=== PATIENT | female | born 1950 | race American Indian/Alaskan Native ===

== ENCOUNTER 2017-01-24 10:19 | Inpatient (IN) | payer MEDICARE, OTHER ==
[2017-01-24] MEDS ORDERED: Albuterol-Ipratrop 3 mg / 0.5 (3 ml) UD INH STA ×4 (10:58→12:30)
[2017-01-24] MEDS ORDERED: MethylPREDNISolone 40 mg Vial IVP STA (10:58)
[2017-01-24] MEDS ORDERED: Albuterol-Ipratrop 3 mg / 0.5 (3 ml) UD ONE ×2 (11:08→12:50)
[2017-01-24 11:22] LABS: BASO % 1.1 % (0.0-2.0); EOS # 0.1 K/uL (0.0-0.7); EOS % 3.6 % (0.0-4.0); HEMATOCRIT 34.6 % (34.0-47.0); LYMPH # 0.6 K/uL (1.0-4.3); LYMPH % 15.3 % (20.0-40.0); MEAN CELL VOLUME 89.2 fL (81.0-99.0); MEAN CORPUSCULAR HEMOGLOBIN 29.6 pg (27.0-31.0); MEAN CORPUSCULAR HGB CONC 33.1 g/dL (33.0-37.0); MEAN PLATELET VOLUME 9.4 fL (7.2-11.7); MONO # 0.7 K/uL (0.0-0.8); MONO % 17.5 % (0.0-10.0); NRBC % 0.1 % (0.0-2.0); RED CELL DISTRIBUTION WIDTH 12.4 % (11.5-14.5)
--- NOTE | 2017-01-24 11:23 | C.PDOC ---
History Of Present Illness 66-year-old female, PMHx includes Anxiety, Arthritis, COPD, Asthma, Diabetes and Hypertension, presents to the emergency department with complaints of cough , congestion, subjective fever and shortness of breath for the past five days. Pt notes associated chest tightness and sore throat. No other complaints at this time. Time Seen by Provider: 01/24/17 10:52 Chief Complaint (Nursing): Cough, Cold, Congestion History Per: Patient History/Exam Limitations: no limitations Onset/Duration Of Symptoms: Days Current Symptoms Are (Timing): Still Present Past Medical History Reviewed: Historical Data, Nursing Documentation, Vital Signs Vital Signs: Last Vital Signs Temp 98.4 F 01/24/17 14:23 Pulse 98 H 01/24/17 14:23 Resp 18 01/24/17 14:23 BP 118/73 01/24/17 14:23 Pulse Ox 98 01/24/17 14:23 - Medical History PMH: Anxiety, Arthritis (of Rt knee and spine), Asthma, Back Problems, Bronchitis, COPD (Asthma; bronchitis), Diabetes, HTN, Pneumonia - [facility] Procedures INSPECTION OF LOWER INTESTINAL TRACT, ENDO (01/07/16) INSPECTION OF UPPER INTESTINAL TRACT, ENDO (01/07/16) Family History: States: Diabetes - Social History Hx Tobacco Use: No Hx Alcohol Use: No Hx Substance Use: No - Immunization History Hx Tetanus Toxoid Vaccination: No Hx Influenza Vaccination: No Hx Pneumococcal Vaccination: No Review Of Systems Except As Marked, All Systems Reviewed And Found Negative. Constitutional: Positive for: Fever. Negative for: Chills, Malaise ENT: Positive for: Throat Pain Cardiovascular: Negative for: Chest Pain Respiratory: Positive for: Cough, Shortness of Breath Gastrointestinal: Negative for: Nausea, Vomiting Musculoskeletal: Negative for: Neck Pain, Back Pain Skin: Negative for: Rash Neurological: Negative for: Weakness, Numbness, Headache, Dizziness Physical Exam - Physical Exam Appears: Non-toxic, No Acute Distress Skin: Warm, Dry, No Rash Head: Atraumatic, Normacephalic Eye(s): bilateral: Normal Inspection, PERRL Nose: Normal Oral Mucosa: Moist Lips: Normal Appearing Neck: Normal ROM Chest: Symmetrical Cardiovascular: Rhythm Regular Respiratory: Decreased Breath Sounds (DIMINISHED B/L), Wheezing (B/L EXPIRATORY) Extremity: Normal ROM Neurological/Psych: Oriented x3, Normal Speech ED Course And Treatment - Laboratory Results Result Diagrams: 01/24/17 11:18 01/24/17 11:18 O2 Sat by Pulse Oximetry: 100 Medical Decision Making Medical Decision Making: nsr [address] t wave changes Disposition - Disposition Disposition: HOSPITALIZED Disposition Time: 12:31 Condition: FAIR - Clinical Impression Clinical Impression: COPD (chronic obstructive pulmonary disease) - Scribe Statement The provider has reviewed the documentation as recorded by the Scribnahid Gifford All medical record entries made by the Scribe were at my direction and personally dictated by me. I have reviewed the chart and agree that the record accurately reflects my personal performance of the history, physical exam, medical decision making, and the department course for this patient. I have also personally directed, reviewed, and agree with the discharge instructions and disposition. Decision To Admit - Pt Status Changed To: Hospital Disposition Of: Inpatient - Admit Certification Admit to Inpatient:: After my assessment, the patient will require hospitalization for at least two midnights. This is because of the severity of symptoms shown, intensity of services needed, and/or the medical risk in this patient being treated as an outpatient. - InPatient: Physician Admission Certification: I certify that this patient requires 2 or more midnights of care for the following reason:: pt with copd, persistent wheezing, needs iv steriods - . Bed Request Type: Telemetry Admitting Physician: Jamari Marroquin Patient Diagnosis: COPD (chronic obstructive pulmonary disease)
[2017-01-24 11:34] LABS: CHLORIDE 102 mmol/L (98-107); SODIUM 141 mmol/L (132-148)
[2017-01-24 11:35] LABS: POTASSIUM 4.4 mmol/L (3.6-5.2)
[2017-01-24 11:37] LABS: ALB/GLOB RATIO 1.1 (1.0-2.1); ALKALINE PHOSPHATASE 85 U/L (38-126); ALT/SGPT 34 U/L (9-52); AST/SGOT 31 U/L (14-36); BILIRUBIN,TOTAL 0.6 mg/dL (0.2-1.3); BLOOD UREA NITROGEN 16 mg/dL (7-17); CARBON DIOXIDE 28 mmol/L (22-30); GFR AFRICAN-AMERICAN > 60; GLUCOSE,RANDOM 144 mg/dL (65-105); TOTAL PROTEIN 7.7 g/dL (6.3-8.3)
[2017-01-24 11:38] LABS: CALCIUM 9.4 mg/dl (8.6-10.4)
--- NOTE | 2017-01-24 13:50 | CP.PCM.HP ---
<Prabhjot Guzman - Last Filed: 01/24/17 13:47> History of Present Illness - History of Present Illness History of Present Illness: This is a 66 yo F with PMH of DM, COPD/asthma and HTN that presented to the ED with a chief complaint of sob. She states that her symptoms started about a week ago. She has been using her nebulizer treatments at home but they have not brought her relief. She has an associated dry cough for the same time period. She reports subjective fevers as well. Pt has never been intubated in the past but has been seen multiple times in the ED for similar complaints. Denies chest pain, palpitations, nausea, vomiting, GI or symptoms. PMD: [place] PMH: as per HPI PSH: denies Home meds: Per [email or web address] but not verified by pt, she is unable to remember her medications Allergies: NKA FH: diabetes and htn SH: Smoked tobacco for a year as a teen, denies Etoh or drugs Present on Admission - Present on Admission Any Indicators Present on Admission: No Review of Systems - Constitutional Constitutional: Chills, Fever - EENT Eyes: absent: Blurred Vision, Pain Nose/Mouth/Throat: absent: Nasal Congestion - Cardiovascular Cardiovascular: absent: Chest Pain, Palpitations - Respiratory Respiratory: Cough, Dyspnea - Gastrointestinal Gastrointestinal: absent: Abdominal Pain, Diarrhea, Nausea, Vomiting - Genitourinary Genitourinary: absent: Urinary Frequency, Urinary Urgency - Musculoskeletal Musculoskeletal: absent: Muscle Weakness, Stiffness Additional comments: right knee pain from a fall about a week ago - Integumentary Integumentary: absent: Pruritus, Rash - Neurological Neurological: absent: Numbness, Headaches, Tingling Past Patient History - Infectious Disease Hx of Infectious Diseases: None - Tetanus Immunizations Tetanus Immunization: Unknown - Past Medical History & Family History Past Medical History?: Yes - Past Social History Smoking Status: Never Smoked - CARDIAC Hx Hypertension: Yes - PULMONARY Hx Asthma: Yes Hx Bronchitis: Yes Hx Chronic Obstructive Pulmonary Disease (COPD): Yes (Asthma; bronchitis) Hx Pneumonia: Yes - NEUROLOGICAL Hx Neurological Disorder: Yes HX Cerebrovascular Accident: Yes - HEENT Hx HEENT Problems: No - ENDOCRINE/METABOLIC Hx Diabetes Mellitus Type 2: Yes - HEMATOLOGICAL/ONCOLOGICAL Hx Blood Disorders: No - INTEGUMENTARY Hx Dermatological Problems: No - MUSCULOSKELETAL/RHEUMATOLOGICAL Hx Arthritis: Yes (of Rt knee and spine) - GASTROINTESTINAL Hx Gastrointestinal Disorders: No - GENITOURINARY/GYNECOLOGICAL Hx Genitourinary Disorders: No - PSYCHIATRIC Hx Anxiety: Yes Hx Substance Use: No - SURGICAL HISTORY Hx Surgeries: No - ANESTHESIA Hx Anesthesia: No Meds Allergies/Adverse Reactions: Allergies Allergy/AdvReac Type Severity Reaction Status Date / Time No Known Allergies Allergy Verified 01/24/17 10:32 Physical Exam - Constitutional Appears: Well, Non-toxic, No Acute Distress - Head Exam Head Exam: ATRAUMATIC, NORMOCEPHALIC - Eye Exam Eye Exam: Normal appearance Pupil Exam: PERRL - ENT Exam ENT Exam: Mucous Membranes Moist - Respiratory Exam Respiratory Exam: Decreased Breath Sounds, Clear to Auscultation Bilateral, NORMAL BREATHING PATTERN. absent: Wheezes - Cardiovascular Exam Cardiovascular Exam: +S1, +S2 - GI/Abdominal Exam GI & Abdominal Exam: Normal Bowel Sounds, Soft - Neurological Exam Neurological exam: Alert, Oriented x3 - Skin Skin Exam: Dry, Warm Results - Vital Signs Recent Vital Signs: Last Vital Signs Temp 98.8 F 01/24/17 10:36 Pulse 82 01/24/17 10:36 Resp 22 01/24/17 10:36 BP 152/76 H 01/24/17 10:36 Pulse Ox 100 01/24/17 12:32 - Labs Result Diagrams: 01/24/17 11:18 01/24/17 11:18 Assessment & Plan - Assessment and Plan (Free Text) Assessment: Shortness of breath - Likely COPD exacerbation - CXR - no active disease, no cardiomegaly, no infiltrates seen - pending official read - EKG - NSR - No wheeze on exam, decreased breath sounds - Received Duonebs and solumedrol 125mg in ED - Continue Solumedrol 40mg Q8H - Pulmicort 0.5 Q12H - Duonebs PRN - AM labs Left knee pain - s/p fall last week - Has been able to bear weight - X-ray - f/u - Naproxen 250 BID PRN Diabetes - Continue home Metformin - Accuchecks - COOKIE HTN - Continue home amlodipine PPX - Pepcid - Lovenox, SCDs <Jamari Marroquin H - Last Filed: 01/24/17 14:46> Results - Vital Signs Recent Vital Signs: Last Vital Signs Temp 98.4 F 01/24/17 14:23 Pulse 98 H 01/24/17 14:23 Resp 18 01/24/17 14:23 BP 118/73 01/24/17 14:23 Pulse Ox 100 01/24/17 14:44 - Labs Result Diagrams: 01/24/17 11:18 01/24/17 11:18 Attending/Attestation - Attestation I have personally seen and examined this patient.: Yes I have fully participated in the care of the patient.: Yes I have reviewed all pertinent clinical information: Yes Notes (Text): Medical Attending: Patient was seen and examined by me. Agree with the above note by the resident. The patient was reporting breathing was better by the time we saw patient in the ER. Will give additional IV solumedrol 40 Q8hrs, also will need Dounebulizers as well as inhaled pulmicort thank you Jamari Marroquin
[2017-01-24] MEDS: MethylPREDNISolone 40 mg Vial IVP SCH ×2 (14:32→22:33)
[2017-01-24] MEDS ORDERED: Naproxen 275 mg Tab PO ONE (14:36)
[2017-01-24] MEDS ORDERED: Naproxen 275 mg Tab PO STA ×2 (14:39→14:42)
--- NOTE | 2017-01-24 15:09 | RAD ---
PROCEDURE: Left Knee Radiographs. HISTORY: Pain. COMPARISON: None. FINDINGS: BONES: Normal. No fracture. JOINTS: Tricompartmental osteoarthritis most severe in the medial joint compartment. No articular erosion. JOINT EFFUSION: None. OTHER FINDINGS: None. IMPRESSION: No acute fracture. Tricompartmental osteoarthritis peer
--- NOTE | 2017-01-24 16:36 | RAD ---
PROCEDURE: CHEST RADIOGRAPH, 1 VIEW HISTORY: chest pain COMPARISON: 08/19/2016 FINDINGS: LUNGS: Clear. PLEURA: No pneumothorax or pleural fluid seen. CARDIOVASCULAR: Normal. OSSEOUS STRUCTURES: No significant abnormalities. VISUALIZED UPPER ABDOMEN: Normal. OTHER FINDINGS: None. IMPRESSION: No active disease.
[2017-01-24] MEDS: (Novolin R) Insulin Human Regular 100 units/ml vial SC SCH ×2 (17:26→22:28)
[2017-01-24] MEDS ORDERED: Naproxen 275 mg Tab PO SCH (18:00)
[2017-01-24] MEDS: Naproxen 275 mg Tab PO PRN (22:32)
[2017-01-25 07:30] LABS: CHLORIDE 100 mmol/L (98-107)
[2017-01-25 07:31] LABS: POTASSIUM 4.4 mmol/L (3.6-5.2); SODIUM 139 mmol/L (132-148)
[2017-01-25 07:33] LABS: ALB/GLOB RATIO 1.3 (1.0-2.1); AST/SGOT 33 U/L (14-36); BILIRUBIN,TOTAL 0.4 mg/dL (0.2-1.3); BLOOD UREA NITROGEN 23 mg/dL (7-17); CARBON DIOXIDE 24 mmol/L (22-30); GFR AFRICAN-AMERICAN > 60; TOTAL PROTEIN 7.5 g/dL (6.3-8.3)
[2017-01-25 07:34] LABS: ALKALINE PHOSPHATASE 93 U/L (38-126); ALT/SGPT 26 U/L (9-52); CALCIUM 9.9 mg/dl (8.6-10.4); GLUCOSE,RANDOM 309 mg/dL (65-105)
[2017-01-25 07:40] LABS: BASO % 0.1 % (0.0-2.0); HEMATOCRIT 35.4 % (34.0-47.0); LYMPH # 0.8 K/uL (1.0-4.3); LYMPH % 15.2 % (20.0-40.0); MEAN CELL VOLUME 89.3 fL (81.0-99.0); MEAN CORPUSCULAR HEMOGLOBIN 29.5 pg (27.0-31.0); MEAN PLATELET VOLUME 10.1 fL (7.2-11.7); MONO # 0.2 K/uL (0.0-0.8); MONO % 4.9 % (0.0-10.0); NRBC % 0.1 % (0.0-2.0); RED CELL DISTRIBUTION WIDTH 12.7 % (11.5-14.5)
[2017-01-25] MEDS: Budesonide 0.5 mg/2 ml Inhal Susp UD INH SCH ×2 (08:20→21:50)
[2017-01-25] MEDS: (Novolin R) Insulin Human Regular 100 units/ml vial SC SCH ×4 (08:21→21:37)
[2017-01-25] MEDS: Enoxaparin 40 mg Syringe SC SCH (09:58)
[2017-01-25] MEDS ORDERED: Pneumococcal 23-Valent Vaccine IM ONE (10:00)
[2017-01-25] MEDS: Naproxen 275 mg Tab PO PRN ×2 (10:42→17:59)
[2017-01-25] MEDS: (Lantus) Insulin Glargine, Recombinant SC SCH (12:34)
[2017-01-25] MEDS: MethylPREDNISolone 40 mg Vial IVP SCH ×2 (13:39→21:38)
[2017-01-25 16:10] VITALS: RESP 20
--- NOTE | 2017-01-25 16:17 | CARD ---
APPROVED REPORT EKG Measurement Heart [id number] <Conclusion> Normal sinus rhythm non specific st t changes. Abnormal ECG
--- NOTE | 2017-01-25 20:51 | CP.PCM.PN ---
<Jamari Hernandez - Last Filed: 01/25/17 21:48> Subjective - Date & Time of Evaluation Date of Evaluation: 01/25/17 Time of Evaluation: 07:15 - Subjective Subjective: PGY1 Medicine Note Patient seen and examined at bedside. No overnight events per nursing. Patient has no acute complaints. Reports NC helps, otherwise feels SOB without it. Her left lower extremity pain persists with palpation s/p fall last week. Tolerating diet. Denies f/c, headache, hest pain, palpitations, nausea, vomiting , GI or symptoms, or any other acute complaints. Objective - Vital Signs/Intake and Output Vital Signs (last 24 hours): Temp Pulse Resp BP Pulse Ox 97.8 F 80 20 168/72 H 98 01/25/17 16:07 01/25/17 16:51 01/25/17 16:07 01/25/17 17:00 01/25/17 16:07 - Medications Medications: Current Medications Albuterol/Ipratropium (Duoneb 3 Mg/0.5 Mg (3 Ml) Ud) 3 ml INH RQ4 PRN PRN Reason: Shortness of Breath Amlodipine Besylate (Norvasc) 5 mg PO DAILY [facility] Last Admin: 01/25/17 09:58 Dose: 5 mg Budesonide (Pulmicort Respules) 0.5 mg INH RQ12 [facility] Last Admin: 01/25/17 08:20 Dose: Not Given Enoxaparin Sodium (Lovenox) 40 mg SC DAILY [facility] Last Admin: 01/25/17 09:58 Dose: 40 mg Famotidine (Pepcid) 20 mg PO BID [facility] Last Admin: 01/25/17 17:56 Dose: 20 mg Insulin Glargine (Lantus) 10 unit SC DAILY [facility] Last Admin: 01/25/17 12:34 Dose: 10 units Insulin Human Regular (Novolin R) 0 unit SC ACHS [facility] PRN Reason: Protocol Last Admin: 01/25/17 17:56 Dose: 1 unit Metformin HCl (Glucophage) 1,000 mg PO BID [facility] Last Admin: 01/25/17 17:56 Dose: 1,000 mg Methylprednisolone (Solu-Medrol) 40 mg IVP Q8H [facility] Last Admin: 01/25/17 13:39 Dose: 40 mg Naproxen (Anaprox) 275 mg PO BID PRN PRN Reason: Pain, moderate (4-7) Last Admin: 01/25/17 17:59 Dose: 275 mg - Labs Labs: 01/25/17 07:01 01/25/17 07:01 PT 10.7 SECONDS (9.7-12.2) 01/24/17 11:18 INR 1.0 01/24/17 11:18 APTT 35 SECONDS (21-34) H 01/24/17 11:18 - Additional Findings Additional findings: - Constitutional Appears: Well, Non-toxic, No Acute Distress - Head Exam Head Exam: ATRAUMATIC, NORMOCEPHALIC - Eye Exam Eye Exam: Normal appearance Pupil Exam: PERRL - ENT Exam ENT Exam: Mucous Membranes Moist - Respiratory Exam Respiratory Exam: Decreased Breath Sounds, Clear to Auscultation Bilateral, NORMAL BREATHING PATTERN. absent: Wheezes - Cardiovascular Exam Cardiovascular Exam: +S1, +S2 - GI/Abdominal Exam GI & Abdominal Exam: Normal Bowel Sounds, Soft - Extremities Exam Extremities exam: Positive for: Tenderness (Left LE), pedal pulses present. - Neurological Exam Neurological exam: Alert, Oriented x3 - Skin Skin Exam: Dry, Warm -tenderness to palpat Assessment and Plan - Assessment and Plan (Free Text) Assessment: Shortness of breath - Likely COPD exacerbation - CXR - no active disease, no cardiomegaly, no infiltrates seen - pending official read - EKG - NSR - No wheeze on exam, decreased breath sounds - Received Duonebs and solumedrol 125mg in ED - Continue Solumedrol 40mg Q8H - Pulmicort 0.5 Q12H - Duonebs PRN - AM labs Left knee pain 01/25: X-ray - no fracture; +tricompartment osteoarthritis. see full report. - s/p fall last week - Has been able to bear weight - Naproxen 250 BID PRN Diabetes 01/25: A1C 15; Lantus 10u daily - Continue home Metformin - Accuchecks - COOKIE HTN -BP WNL - Continue home amlodipine PPX - Pepcid - Lovenox, SCDs - PT eval/treat <Efren Ramos M - Last Filed: 01/26/17 15:28> Objective - Vital Signs/Intake and Output Vital Signs (last 24 hours): Temp Pulse Resp BP Pulse Ox 97.8 F 99 H 20 170/80 H 96 01/26/17 07:39 01/26/17 09:05 01/26/17 07:39 01/26/17 07:39 01/26/17 07:39 Intake and Output: 01/26/17 01/26/17 06:59 18:59 Intake Total 240 Balance 240 - Medications Medications: Current Medications Albuterol Sulfate (Albuterol 0.042% Inhal Olinda (1.25mg/3ml) Ud) 1.25 mg INH RQ6 [facility] Last Admin: 01/26/17 14:58 Dose: Not Given Amlodipine Besylate (Norvasc) 5 mg PO DAILY [facility] Last Admin: 01/26/17 09:51 Dose: 5 mg Budesonide (Pulmicort Respules) 0.5 mg INH RQ12 [facility] Last Admin: 01/26/17 07:56 Dose: 0.5 mg Enoxaparin Sodium (Lovenox) 40 mg SC DAILY [facility] Last Admin: 01/26/17 09:53 Dose: 40 mg Famotidine (Pepcid) 20 mg PO BID [facility] Last Admin: 01/26/17 09:51 Dose: 20 mg Insulin Glargine (Lantus) 10 unit SC DAILY [facility] Last Admin: 01/26/17 09:53 Dose: 10 units Insulin Human Regular (Novolin R) 0 unit SC ACHS [facility] PRN Reason: Protocol Last Admin: 01/26/17 12:59 Dose: 5 unit Metformin HCl (Glucophage) 1,000 mg PO BID [facility] Last Admin: 01/26/17 09:51 Dose: 1,000 mg Methylprednisolone (Solu-Medrol) 40 mg IVP Q8H [facility] Last Admin: 01/26/17 14:48 Dose: 40 mg Naproxen (Anaprox) 275 mg PO BID PRN PRN Reason: Pain, moderate (4-7) Last Admin: 01/26/17 05:43 Dose: 275 mg - Labs Labs: 01/26/17 07:11 01/26/17 07:11 PT 10.7 SECONDS (9.7-12.2) 01/24/17 11:18 INR 1.0 01/24/17 11:18 APTT 35 SECONDS (21-34) H 01/24/17 11:18 Attending/Attestation - Attestation I have personally seen and examined this patient.: Yes I have fully participated in the care of the patient.: Yes I have reviewed all pertinent clinical information, including history, physical exam and plan: Yes Notes (Text): 01/26/17 15:27 Patient was seen and examined at bedside with the resident Patient still has shortness of breath We will continue treatment with steroids and nebulizer. We will titrate patient's medication for diabetes for optimal control Discussed the plan of care with the resident and agree with the above assessment and plan by the resident
[2017-01-26] MEDS: Albuterol-Ipratrop 3 mg / 0.5 (3 ml) UD INH PRN ×2 (03:50→11:57)
[2017-01-26] MEDS: MethylPREDNISolone 40 mg Vial IVP SCH ×3 (05:32→21:33)
[2017-01-26] MEDS: Naproxen 275 mg Tab PO PRN ×2 (05:43→16:30)
[2017-01-26 07:30] LABS: CHLORIDE 98 mmol/L (98-107); POTASSIUM 4.2 mmol/L (3.6-5.2); SODIUM 139 mmol/L (132-148)
[2017-01-26 07:32] LABS: AST/SGOT 22 U/L (14-36); BILIRUBIN,TOTAL 0.2 mg/dL (0.2-1.3); CARBON DIOXIDE 25 mmol/L (22-30); GFR AFRICAN-AMERICAN > 60
[2017-01-26 07:33] LABS: ALB/GLOB RATIO 1.2 (1.0-2.1); ALKALINE PHOSPHATASE 83 U/L (38-126); ALT/SGPT 21 U/L (9-52); BLOOD UREA NITROGEN 25 mg/dL (7-17); GLUCOSE,RANDOM 300 mg/dL (65-105); TOTAL PROTEIN 6.8 g/dL (6.3-8.3)
[2017-01-26 07:34] LABS: CALCIUM 9.2 mg/dl (8.6-10.4)
[2017-01-26 07:41] LABS: BASO % 0.2 % (0.0-2.0); HEMATOCRIT 33.6 % (34.0-47.0); LYMPH % 10.5 % (20.0-40.0); MEAN CELL VOLUME 89.5 fL (81.0-99.0); MEAN CORPUSCULAR HEMOGLOBIN 29.5 pg (27.0-31.0); MEAN PLATELET VOLUME 10.3 fL (7.2-11.7); MONO # 0.7 K/uL (0.0-0.8); MONO % 7.8 % (0.0-10.0); RED CELL DISTRIBUTION WIDTH 12.4 % (11.5-14.5); WHITE BLOOD COUNT 9.2 K/uL (4.8-10.8)
--- NOTE | 2017-01-26 07:52 | CP.PCM.PN ---
<Jamari Hernandez - Last Filed: 01/26/17 21:06> Subjective - Date & Time of Evaluation Date of Evaluation: 01/26/17 Time of Evaluation: 07:40 - Subjective Subjective: PGY1 Medicine Note Pt seen and examined at bedside, chart reviewed and case discussed. She continues to be pleasant and in good spirits. Today she reports that her SOB and coughing have worsened over the night, she reports muscle fatigue in her chest. She has been reluctant to ask for nebulizer treatments because she notes that they make her too jittery and worsen her right arm tremor. She did receive one nebulizer treatment overnight as she became SOB. Her leg pain continues to be an issue and the staff now has a bed alarm for her as she still feels as if she could fall when ambulating. Denies fevers,chills, abdominal pain, nausea, vomiting or any additional complaints. Objective - Vital Signs/Intake and Output Vital Signs (last 24 hours): Temp Pulse Resp BP Pulse Ox 97.8 F 72 20 170/80 H 96 01/26/17 07:39 01/26/17 07:39 01/26/17 07:39 01/26/17 07:39 01/26/17 07:39 Intake and Output: 01/26/17 01/26/17 06:59 18:59 Intake Total 240 Balance 240 - Medications Medications: Current Medications Albuterol/Ipratropium (Duoneb 3 Mg/0.5 Mg (3 Ml) Ud) 3 ml INH RQ4 PRN PRN Reason: Shortness of Breath Last Admin: 01/26/17 03:50 Dose: 3 ml Amlodipine Besylate (Norvasc) 5 mg PO DAILY [facility] Last Admin: 01/25/17 09:58 Dose: 5 mg Budesonide (Pulmicort Respules) 0.5 mg INH RQ12 [facility] Last Admin: 01/25/17 21:50 Dose: 0.5 mg Enoxaparin Sodium (Lovenox) 40 mg SC DAILY [facility] Last Admin: 01/25/17 09:58 Dose: 40 mg Famotidine (Pepcid) 20 mg PO BID [facility] Last Admin: 01/25/17 17:56 Dose: 20 mg Insulin Glargine (Lantus) 10 unit SC DAILY [facility] Last Admin: 01/25/17 12:34 Dose: 10 units Insulin Human Regular (Novolin R) 0 unit SC ACHS [facility] PRN Reason: Protocol Last Admin: 01/25/17 21:37 Dose: Not Given Metformin HCl (Glucophage) 1,000 mg PO BID [facility] Last Admin: 01/25/17 17:56 Dose: 1,000 mg Methylprednisolone (Solu-Medrol) 40 mg IVP Q8H [facility] Last Admin: 01/26/17 05:32 Dose: 40 mg Naproxen (Anaprox) 275 mg PO BID PRN PRN Reason: Pain, moderate (4-7) Last Admin: 01/26/17 05:43 Dose: 275 mg - Labs Labs: 01/26/17 07:11 01/26/17 07:11 PT 10.7 SECONDS (9.7-12.2) 01/24/17 11:18 INR 1.0 01/24/17 11:18 APTT 35 SECONDS (21-34) H 01/24/17 11:18 - Additional Findings Additional findings: - Constitutional Appears: Well, Non-toxic, No Acute Distress - Head Exam Head Exam: ATRAUMATIC, NORMOCEPHALIC - Eye Exam Eye Exam: Normal appearance Pupil Exam: PERRL - ENT Exam ENT Exam: Mucous Membranes Moist - Respiratory Exam Respiratory Exam: Decreased Breath Sounds, Clear to Auscultation Bilateral, NORMAL BREATHING PATTERN. absent: Wheezes +Cough - Cardiovascular Exam Cardiovascular Exam: +S1, +S2 - GI/Abdominal Exam GI & Abdominal Exam: Normal Bowel Sounds, Soft - Extremities Exam Extremities exam: Positive for: Tenderness (Left LE), pedal pulses present. - TTP of the left lower leg from the mid-noble to just above the patella - Neurological Exam Neurological exam: Alert, Oriented x3 -resting tremor of the right arm - Skin Skin Exam: Dry, Warm Assessment and Plan - Assessment and Plan (Free Text) Assessment: Shortness of breath 01/26: Stop duonebs due to tremor. Albuterol 1.25mg INH RQ6 (substitute for Xopenex); f/u peak flow - Likely COPD exacerbation - CXR - no active disease, no cardiomegaly, no infiltrates seen - pending official read - EKG - NSR - No wheeze on exam, decreased breath sounds - Received Duonebs and solumedrol 125mg in ED - Continue Solumedrol 40mg Q8H - Pulmicort 0.5 Q12H - Duonebs PRN - AM labs Left knee pain 01/26: c/o arthritic pain - inc. Naproxen 550mg PO BID [facility]. 01/25: X-ray - no fracture; +tricompartment osteoarthritis. see full report. - s/p fall last week - Has been able to bear weight - Naproxen 250 BID PRN Diabetes 01/26: Glucose elevated. Inc Lantus 10u SC BID; Will consider restarting home med Glipizide 5mg qD 01/25: A1C 15; Lantus 10u daily - Continue home Metformin - Accuchecks - COOKIE HTN -BP WNL - Continue home amlodipine PPX - Protonix 40mg PO BID - Eli SCDs - PT eval/treat - Consider home med: Sertraline 50mg QD (SSRI) <Efren Ramos - Last Filed: 01/27/17 13:57> Objective - Vital Signs/Intake and Output Vital Signs (last 24 hours): Temp Pulse Resp BP Pulse Ox 97.7 F 71 20 150/77 98 01/27/17 07:00 01/27/17 09:00 01/27/17 07:00 01/27/17 07:00 01/27/17 07:00 - Medications Medications: Current Medications Albuterol Sulfate (Albuterol 0.042% Inhal Olinda (1.25mg/3ml) Ud) 1.25 mg INH RQ6 [facility] Last Admin: 01/27/17 13:28 Dose: 1.25 mg Amlodipine Besylate (Norvasc) 5 mg PO DAILY [facility] Last Admin: 01/27/17 10:23 Dose: 5 mg Budesonide (Pulmicort Respules) 0.5 mg INH RQ12 [facility] Last Admin: 01/27/17 07:27 Dose: 0.5 mg Enoxaparin Sodium (Lovenox) 40 mg SC DAILY [facility] Last Admin: 01/27/17 10:22 Dose: 40 mg Insulin Detemir (Levemir) 10 unit SC BID [facility] Last Admin: 01/27/17 10:22 Dose: 10 unit Insulin Human Regular (Novolin R) 0 unit SC ACHS [facility] PRN Reason: Protocol Last Admin: 01/27/17 12:55 Dose: 2 unit Metformin HCl (Glucophage) 1,000 mg PO BID [facility] Last Admin: 01/27/17 10:23 Dose: 1,000 mg Methylprednisolone (Solu-Medrol) 40 mg IVP Q8H [facility] Last Admin: 01/27/17 05:26 Dose: 40 mg Naproxen (Anaprox Ds) 550 mg PO BID [facility] Last Admin: 01/27/17 10:46 Dose: 550 mg Pantoprazole Sodium (Protonix Ec Tab) 40 mg PO BID [facility] Last Admin: 01/27/17 10:23 Dose: 40 mg - Labs Labs: 01/27/17 07:03 01/27/17 07:03 PT 10.7 SECONDS (9.7-12.2) 01/24/17 11:18 INR 1.0 01/24/17 11:18 APTT 35 SECONDS (21-34) H 01/24/17 11:18 Attending/Attestation - Attestation I have personally seen and examined this patient.: Yes I have fully participated in the care of the patient.: Yes I have reviewed all pertinent clinical information, including history, physical exam and plan: Yes Notes (Text): 01/27/17 13:56 Patient was seen and examined at bedside with the resident She still has mild shortness of breath We'll continue IV steroids Titrate the insulin for optimal sugar control Discussed the plan of care with the resident and agree with the above assessment and plan by the resident
[2017-01-26] MEDS: Budesonide 0.5 mg/2 ml Inhal Susp UD INH SCH (07:56)
[2017-01-26] MEDS: (Novolin R) Insulin Human Regular 100 units/ml vial SC SCH ×4 (08:38→20:59)
[2017-01-26] MEDS: Enoxaparin 40 mg Syringe SC SCH (09:53)
[2017-01-26] MEDS: (Lantus) Insulin Glargine, Recombinant SC SCH (09:53)
[2017-01-26] MEDS: Albuterol 0.042% Inhal Sol (1.25 mg/3 mL) UD INH SCH ×2 (14:58→16:16)
[2017-01-26] MEDS ORDERED: Influenza Virus Vaccine 45 mcg/0.5 ml Syr IM ONE (15:34)
[2017-01-26] MEDS ORDERED: Naproxen 275 mg Tab PO ONE (17:15)
[2017-01-26] MEDS: Pantoprazole 40 mg EC Tab PO SCH (18:08)
[2017-01-26] MEDS: Naproxen 550 mg Tab PO SCH (18:08)
[2017-01-26] MEDS: Insulin Detemir 100 units/ml Vial (Levemir) SC SCH (21:30)
[2017-01-27] MEDS: Albuterol 0.042% Inhal Sol (1.25 mg/3 mL) UD INH SCH ×3 (01:29→13:28)
[2017-01-27] MEDS: MethylPREDNISolone 40 mg Vial IVP SCH ×2 (05:26→14:21)
[2017-01-27 07:21] LABS: BASO % 0.1 % (0.0-2.0); LYMPH # 1.3 K/uL (1.0-4.3); LYMPH % 13.2 % (20.0-40.0); MEAN CELL VOLUME 89.1 fL (81.0-99.0); MEAN CORPUSCULAR HEMOGLOBIN 29.7 pg (27.0-31.0); MEAN CORPUSCULAR HGB CONC 33.3 g/dL (33.0-37.0); MONO # 0.6 K/uL (0.0-0.8); MONO % 6.5 % (0.0-10.0); RED CELL DISTRIBUTION WIDTH 12.7 % (11.5-14.5); WHITE BLOOD COUNT 9.7 K/uL (4.8-10.8)
[2017-01-27] MEDS: Budesonide 0.5 mg/2 ml Inhal Susp UD INH SCH (07:27)
[2017-01-27 07:33] LABS: CHLORIDE 98 mmol/L (98-107); SODIUM 140 mmol/L (132-148)
[2017-01-27 07:34] LABS: POTASSIUM 4.3 mmol/L (3.6-5.2)
[2017-01-27 07:36] LABS: ALB/GLOB RATIO 1.2 (1.0-2.1); ALKALINE PHOSPHATASE 77 U/L (38-126); ALT/SGPT 17 U/L (9-52); AST/SGOT 17 U/L (14-36); BILIRUBIN,TOTAL 0.4 mg/dL (0.2-1.3); BLOOD UREA NITROGEN 28 mg/dL (7-17); CARBON DIOXIDE 27 mmol/L (22-30); GFR AFRICAN-AMERICAN > 60; GLUCOSE,RANDOM 219 mg/dL (65-105); PHOSPHOROUS 3.5 mg/dL (2.5-4.5); TOTAL PROTEIN 7.1 g/dL (6.3-8.3)
[2017-01-27 07:37] LABS: CALCIUM 9.5 mg/dl (8.6-10.4)
[2017-01-27] MEDS: (Novolin R) Insulin Human Regular 100 units/ml vial SC SCH ×2 (08:36→12:55)
[2017-01-27 09:04] VITALS: BP 150/77; TEMP 97.7; O2SAT 98
[2017-01-27] MEDS: Insulin Detemir 100 units/ml Vial (Levemir) SC SCH (10:22)
[2017-01-27] MEDS: Enoxaparin 40 mg Syringe SC SCH (10:22)
[2017-01-27] MEDS: Pantoprazole 40 mg EC Tab PO SCH (10:23)
[2017-01-27] MEDS: Naproxen 550 mg Tab PO SCH (10:46)
[2017-01-27 11:35] VITALS: PULSE 71
[2017-01-27] MEDS ORDERED: Pneumococcal 23-Valent Vaccine IM ONE (14:44)
[2017-01-27] MEDS ORDERED: Influenza Virus Vaccine 45 mcg/0.5 ml Syr IM ONE (15:00)
--- NOTE | 2017-01-27 20:21 | CP.PCM.DIS ---
<Jamari Hernandez - Last Filed: 01/27/17 20:17> Provider - Provider Date of Admission: 01/24/17 12:32 Attending physician: Jamari Marroquin DO Time Spent in preparation of Discharge (in minutes): 40 Hospital Course - Lab Results Lab Results: Most Recent Lab Values WBC 9.7 K/uL (4.8-10.8) 01/27/17 07:03 RBC 4.04 Mil/uL (3.80-5.20) 01/27/17 07:03 Hgb 12.0 g/dL (11.0-16.0) 01/27/17 07:03 Hct 36.0 % (34.0-47.0) 01/27/17 07:03 MCV 89.1 fL (81.0-99.0) 01/27/17 07:03 MCH 29.7 pg (27.0-31.0) 01/27/17 07:03 MCHC 33.3 g/dL (33.0-37.0) 01/27/17 07:03 RDW 12.7 % (11.5-14.5) 01/27/17 07:03 Plt Count 185 K/uL (130-400) 01/27/17 07:03 MPV 10.0 fL (7.2-11.7) 01/27/17 07:03 Neut % (Auto) 80.2 % (50.0-75.0) H 01/27/17 07:03 Lymph % (Auto) 13.2 % (20.0-40.0) L 01/27/17 07:03 [place] % (Auto) 6.5 % (0.0-10.0) 01/27/17 07:03 Eos % (Auto) 0.0 % (0.0-4.0) 01/27/17 07:03 Baso % (Auto) 0.1 % (0.0-2.0) 01/27/17 07:03 Neut # 7.8 K/uL (1.8-7.0) H 01/27/17 07:03 Lymph # 1.3 K/uL (1.0-4.3) 01/27/17 07:03 [place] # 0.6 K/uL (0.0-0.8) 01/27/17 07:03 Eos # 0.0 K/uL (0.0-0.7) 01/27/17 07:03 Baso # 0.0 K/uL (0.0-0.2) 01/27/17 07:03 PT 10.7 SECONDS (9.7-12.2) 01/24/17 11:18 INR 1.0 01/24/17 11:18 APTT 35 SECONDS (21-34) H 01/24/17 11:18 Sodium 140 mmol/L (132-148) 01/27/17 07:03 Potassium 4.3 mmol/L (3.6-5.2) 01/27/17 07:03 Chloride 98 mmol/L (98-107) 01/27/17 07:03 Carbon Dioxide 27 mmol/L (22-30) 01/27/17 07:03 Anion Gap 20 (10-20) 01/27/17 07:03 BUN 28 mg/dL (7-17) H 01/27/17 07:03 Creatinine 1.0 MG/DL (0.7-1.2) 01/27/17 07:03 Est GFR ( Amer) > 60 01/27/17 07:03 Est GFR (Non-Af Amer) 56 01/27/17 07:03 POC Glucose (mg/dL) 233 mg/dL (65-110) H 01/27/17 11:25 Random Glucose 219 mg/dL (65-105) H 01/27/17 07:03 Calcium 9.5 mg/dl (8.6-10.4) 01/27/17 07:03 Phosphorus 3.5 mg/dL (2.5-4.5) 01/27/17 07:03 Magnesium 2.0 mg/dL (1.6-2.3) 01/27/17 07:03 Total Bilirubin 0.4 mg/dL (0.2-1.3) 01/27/17 07:03 AST 17 U/L (14-36) 01/27/17 07:03 ALT 17 U/L (9-52) 01/27/17 07:03 Alkaline Phosphatase 77 U/L (38-126) 01/27/17 07:03 Troponin I < 0.0120 ng/mL (0.00-0.120) 01/24/17 11:18 NT-Pro-B Natriuret Pep 35.4 pg/mL (0-900) 01/24/17 11:18 Total Protein 7.1 g/dL (6.3-8.3) 01/27/17 07:03 Albumin 3.9 g/dL (3.5-5.0) 01/27/17 07:03 Globulin 3.2 gm/dL (2.2-3.9) 01/27/17 07:03 Albumin/Globulin Ratio 1.2 (1.0-2.1) 01/27/17 07:03 Influenza Typ A,B (EIA) Negative for flu a/b (NEGATIVE) 01/24/17 10:59 Grp A Beta Strep Ag Negative (NEGATIVE) 01/24/17 10:59 - Hospital Course Hospital Course: Upon hospital admission: This is a 66 yo F with PMH of DM, COPD/asthma and HTN that presented to the ED with a chief complaint of sob. She states that her symptoms started about a week ago. She has been using her nebulizer treatments at home but they have not brought her relief. She has an associated dry cough for the same time period. She reports subjective fevers as well. Pt has never been intubated in the past but has been seen multiple times in the ED for similar complaints. Denies chest pain, palpitations, nausea, vomiting, GI or symptoms. PMD: [place] PMH: as per HPI PSH: denies Home meds: Per ipDatatel but not verified by pt, she is unable to remember her medications Allergies: NKA FH: diabetes and htn SH: Smoked tobacco for a year as a teen, denies Etoh or drugs During hospital course, the patient was evaluated and treated for the following : (1) COPD Exacerbation- Shortness of breath for which duonebs were effective, however they were stopped due to tremor. Utilized Albuterol 1.25mg INH RQ6 ( substitute for Xopenex) and peak flow readings eventually exceeded 300. Also tx with Solumedrol 40mg Q8H, Pulmicort 0.5 Q12H, Duonebs PRN. (2) Left knee pain tx with Naproxen 550mg PO BID STEFANIE. X-ray - no fracture; +tricompartment osteoarthritis. see full report. Patient is s/p fall last week and unable to bear weight well. (3) Diabetes for which Glucose elevated. Inc Lantus 10u SC BID ; Will resume home med Glipizide 5mg qD on discharge. (4) HTN with BP WNL and treated with her home med Amlodipine. Upon hospital discharge, the patient was provided with the following instructions: Patient is stable for discharge per Dr. Ramos. Patient should resume all medications as outlined in this document. Additionally, patient should take the new medications listed below (scripts provided). Patient also provided a script for home RN for COPD and home PT for HEP due to hx of falls/ weakness. 1. Please make an appointment and follow up with Primary Doctor within one week of discharge. If patient does not have a Primary Doctor, please follow up with [facility] to establish medical care, at [phone]. 2. Please make an appointment and follow up with your Orthopedic Doctor ( previously established) for further evaluation and treatment of your Left Knee osteoarthritis. Patient should return to ED immediately if symptoms return or worsen. Instructions discussed with patient who understood and agreed. Newly prescribed medications: - Prednisone 10mg PO daily #20 Taper Schedule. Please take for the next 8 days following the instructions below : Days 1-2; 40mg total: 10 mg PO before breakfast, 10 mg after lunch, 10mg after dinner, and 10 mg at bedtime Days 3-4; 30mg total: 10mg PO before breakfast, 10mg after lunch, and 10 mg at bedtime Days 5-6; 20mg total: 10mg PO before breakfast and 10mg at bedtime Days 7-8; 10mg total: 10mg PO before breakfast This is a summary of the patient's hospital admission, see chart for comprehensive detail. - Date & Time of H&P Date of H&P: 01/24/17 Time of H&P: 13:47 Discharge Exam - Additional Findings Additional findings: - Constitutional Appears: Well, Non-toxic, No Acute Distress - Head Exam Head Exam: ATRAUMATIC, NORMOCEPHALIC - Eye Exam Eye Exam: Normal appearance Pupil Exam: PERRL - ENT Exam ENT Exam: Mucous Membranes Moist - Respiratory Exam Respiratory Exam: Decreased Breath Sounds, Clear to Auscultation Bilateral, NORMAL BREATHING PATTERN. absent: Wheezes +Cough (improving) - Cardiovascular Exam Cardiovascular Exam: +S1, +S2 - GI/Abdominal Exam GI & Abdominal Exam: Normal Bowel Sounds, Soft - Extremities Exam Extremities exam: Positive for: Tenderness (Left LE), pedal pulses present. - TTP of the left lower leg from the mid-noble to just above the patella - Neurological Exam Neurological exam: Alert, Oriented x3 -resting tremor of the right arm - Skin Skin Exam: Dry, Warm Discharge Plan - Discharge Medications Prescriptions: predniSONE [predniSONE Tab] 10 mg PO DAILY #20 tab - Follow Up Plan Condition: FAIR Disposition: HOME/ ROUTINE Instructions: Asthma (DC) Additional Instructions: Patient is stable for discharge per Dr. Ramos. Patient should resume all medications as outlined in this document. Additionally, patient should take the new medications listed below (scripts provided). Patient also provided a script for home RN for COPD and home PT for HEP due to hx of falls/weakness. 1. Please make an appointment and follow up with Primary Doctor within one week of discharge. If patient does not have a Primary Doctor, please follow up with [facility] to establish medical care, at [phone]. 2. Please make an appointment and follow up with your Orthopedic Doctor ( previously established) for further evaluation and treatment of your Left Knee osteoarthritis. Patient should return to ED immediately if symptoms return or worsen. Instructions discussed with patient who understood and agreed. Newly prescribed medications: - Prednisone 10mg PO daily #20 Taper Schedule. Please take for the next 8 days following the instructions below : Days 1-2; 40mg total: 10 mg PO before breakfast, 10 mg after lunch, 10mg after dinner, and 10 mg at bedtime Days 3-4; 30mg total: 10mg PO before breakfast, 10mg after lunch, and 10 mg at bedtime Days 5-6; 20mg total: 10mg PO before breakfast and 10mg at bedtime Days 7-8; 10mg total: 10mg PO before breakfast <Efren Ramos - Last Filed: 01/28/17 09:09> Provider - Provider Date of Admission: 01/24/17 12:32 Attending physician: Jamari Marroquin DO Hospital Course - Lab Results Lab Results: Most Recent Lab Values WBC 9.7 K/uL (4.8-10.8) 01/27/17 07:03 RBC 4.04 Mil/uL (3.80-5.20) 01/27/17 07:03 Hgb 12.0 g/dL (11.0-16.0) 01/27/17 07:03 Hct 36.0 % (34.0-47.0) 01/27/17 07:03 MCV 89.1 fL (81.0-99.0) 01/27/17 07:03 MCH 29.7 pg (27.0-31.0) 01/27/17 07:03 MCHC 33.3 g/dL (33.0-37.0) 01/27/17 07:03 RDW 12.7 % (11.5-14.5) 01/27/17 07:03 Plt Count 185 K/uL (130-400) 01/27/17 07:03 MPV 10.0 fL (7.2-11.7) 01/27/17 07:03 Neut % (Auto) 80.2 % (50.0-75.0) H 01/27/17 07:03 Lymph % (Auto) 13.2 % (20.0-40.0) L 01/27/17 07:03 [place] % (Auto) 6.5 % (0.0-10.0) 01/27/17 07:03 Eos % (Auto) 0.0 % (0.0-4.0) 01/27/17 07:03 Baso % (Auto) 0.1 % (0.0-2.0) 01/27/17 07:03 Neut # 7.8 K/uL (1.8-7.0) H 01/27/17 07:03 Lymph # 1.3 K/uL (1.0-4.3) 01/27/17 07:03 [place] # 0.6 K/uL (0.0-0.8) 01/27/17 07:03 Eos # 0.0 K/uL (0.0-0.7) 01/27/17 07:03 Baso # 0.0 K/uL (0.0-0.2) 01/27/17 07:03 PT 10.7 SECONDS (9.7-12.2) 01/24/17 11:18 INR 1.0 01/24/17 11:18 APTT 35 SECONDS (21-34) H 01/24/17 11:18 Sodium 140 mmol/L (132-148) 01/27/17 07:03 Potassium 4.3 mmol/L (3.6-5.2) 01/27/17 07:03 Chloride 98 mmol/L (98-107) 01/27/17 07:03 Carbon Dioxide 27 mmol/L (22-30) 01/27/17 07:03 Anion Gap 20 (10-20) 01/27/17 07:03 BUN 28 mg/dL (7-17) H 01/27/17 07:03 Creatinine 1.0 MG/DL (0.7-1.2) 01/27/17 07:03 Est GFR ( Amer) > 60 01/27/17 07:03 Est GFR (Non-Af Amer) 56 01/27/17 07:03 POC Glucose (mg/dL) 233 mg/dL (65-110) H 01/27/17 11:25 Random Glucose 219 mg/dL (65-105) H 01/27/17 07:03 Calcium 9.5 mg/dl (8.6-10.4) 01/27/17 07:03 Phosphorus 3.5 mg/dL (2.5-4.5) 01/27/17 07:03 Magnesium 2.0 mg/dL (1.6-2.3) 01/27/17 07:03 Total Bilirubin 0.4 mg/dL (0.2-1.3) 01/27/17 07:03 AST 17 U/L (14-36) 01/27/17 07:03 ALT 17 U/L (9-52) 01/27/17 07:03 Alkaline Phosphatase 77 U/L (38-126) 01/27/17 07:03 Troponin I < 0.0120 ng/mL (0.00-0.120) 01/24/17 11:18 NT-Pro-B Natriuret Pep 35.4 pg/mL (0-900) 01/24/17 11:18 Total Protein 7.1 g/dL (6.3-8.3) 01/27/17 07:03 Albumin 3.9 g/dL (3.5-5.0) 01/27/17 07:03 Globulin 3.2 gm/dL (2.2-3.9) 01/27/17 07:03 Albumin/Globulin Ratio 1.2 (1.0-2.1) 01/27/17 07:03 Influenza Typ A,B (EIA) Negative for flu a/b (NEGATIVE) 01/24/17 10:59 Grp A Beta Strep Ag Negative (NEGATIVE) 01/24/17 10:59 Attending/Attestation - Attestation I have personally seen and examined this patient.: Yes I have fully participated in the care of the patient.: Yes I have reviewed all pertinent clinical information, including history, physical exam and plan: Yes Notes (Text): 01/28/17 09:08 Patient was seen and examined at bedside with the resident Patient is feeling better Breathing is improved Patient denies any shortness of breath Peak flow is around 350 today. We will discharge the patient to home on oral prednisone Discussed the discharge plan with the patient and she verbalized understanding. I agree with the above discharge note but the resident
== END 2017-01-27 16:40 | disposition home or self-care (01) | DRG 192 ==
LOC: C.ER 10:19 → C.9E 12:32 → C.5T 15:59
PROVIDERS: ADMIT Hospitalist; ATTEND Hospitalist
DX: J44.1 Chronic obstructive pulmonary disease with (acute) exacerbation (principal); I10 Essential (primary) hypertension; M17.0 Bilateral primary osteoarthritis of knee; M47.9 Spondylosis, unspecified; E11.9 Type 2 diabetes mellitus without complications; R07.89 Other chest pain; F41.9 Anxiety disorder, unspecified; J45.909 Unspecified asthma, uncomplicated; Z79.4 Long term (current) use of insulin; Z87.01 Personal history of pneumonia (recurrent); Z23 Encounter for immunization; Z91.81 History of falling; Z87.891 Personal history of nicotine dependence

== ENCOUNTER 2017-07-21 18:43 | Emergency (ER) | payer MEDICARE ==
[2017-07-21 19:00] VITALS: BP 109/73; PULSE 78; TEMP 98; O2SAT 100
--- NOTE | 2017-07-21 19:50 | C.PDOC ---
History Of Present Illness Patient presents with c/o bilateral knee and lower back pain since 16:30 today. Patient reports that while she was bending down her right knee buckled and she fell backwards. While her was trying to catch her, he fell on top of her left knee. Patient notes "pins" sensation to the left foot, but denies LOC or head trauma. Denies bowel/bladder incontinence, fever, abdominal pain, chestpain, SOB, headache, weakness or numbness. Time Seen by Provider: 07/21/17 19:33 Chief Complaint (Nursing): Lower Extremity Problem/Injury History Per: Patient History/Exam Limitations: no limitations Onset/Duration Of Symptoms: Hrs (1630) Current Symptoms Are (Timing): Still Present Severity: Mild Recent travel outside of the [place]: No Additional History Per: Patient - Ankle/Foot Description Of Injury: Fell Alleviating Factor(s): Ice Therapy Past Medical History Reviewed: Historical Data, Nursing Documentation, Vital Signs Vital Signs: Last Vital Signs Temp 98 F 07/21/17 18:55 Pulse 78 07/21/17 18:55 Resp 20 07/21/17 21:44 BP 109/73 07/21/17 18:55 Pulse Ox 100 07/21/17 21:06 - Medical History PMH: Anxiety, Arthritis (of B/L knee L>R and spine), Asthma, Back Problems, Bronchitis, COPD (Asthma; bronchitis), Diabetes, HTN, Pneumonia - [facility] Procedures INSPECTION OF LOWER INTESTINAL TRACT, ENDO (01/07/16) INSPECTION OF UPPER INTESTINAL TRACT, ENDO (01/07/16) Family History: States: Diabetes - Social History Hx Tobacco Use: No Hx Alcohol Use: No Hx Substance Use: No - Immunization History Hx Tetanus Toxoid Vaccination: No Hx Influenza Vaccination: No Hx Pneumococcal Vaccination: No Review Of Systems Constitutional: Negative for: Weakness, Other (Head trauma) Musculoskeletal: Positive for: Back Pain, Leg Pain (Bilateral knees), Other ( Pins sensation to the left foot) Skin: Negative for: Rash, Lesions Neurological: Negative for: Weakness, Numbness, Dizziness, Other (LOC) Physical Exam - Physical Exam Appears: Non-toxic, No Acute Distress Skin: Warm, Dry Head: Atraumatic, Normacephalic Eye(s): bilateral: Normal Inspection, PERRL, EOMI Neck: Normal ROM, No Midline Cervical Tenderness, No Paracervical Tenderness, Supple Back: Paraspinal Tenderness (Paralumbar ) Extremity: No Normal ROM (Limited ROM of the left knee secondary to pain. Right normal ROM.), Tenderness (Left anterior knee), No Calf Tenderness, Capillary Refill (<2secs), Swelling (Left anterior knee) Pulses: Left Dorsalis Pedis: Normal, Right Dorsalis Pedis: Normal Neurological/Psych: Oriented x3, Normal Speech, Normal Motor, Normal Sensation ED Course And Treatment O2 Sat by Pulse Oximetry: 100 (RA) Pulse Ox Interpretation: Normal - Other Rad XRAY left knee X-Ray: Interpreted by Me, Viewed By Me Interpretation: No fracture or dislocations. (+) Degenerative changes. XRAY LS Spine X-Ray: Interpreted by Me, Viewed By Me Interpretation: No fracture or dislocations. (+) Degenerative changes. Medical Decision Making Medical Decision Making: Initial Plans: * XRAY LS Spine * XRAY left knee Xrays are negative. Knee immobilizer was placed by ED nurse. Patient reports that she has a cane at home which she will use. On reassessment, patient is resting comfortably, with improvement of back pain and knee pain. Patient remains afebrile, with no bony tenderness, extremity numbness or weakness, or abdominal pain. Patient is ambulatory in the emergency department with no signs of discomfort. Patient was advised to follow up with physician/clinic in 1-2 days. Disposition - Disposition Referrals: [facility] [Outside] Disposition: HOME/ ROUTINE Disposition Time: 21:03 Condition: GOOD Additional Instructions: Follow up with the Orthopedist within 1-2 days. Return if worsened. Prescriptions: Acetaminophen [Tylenol] 325 mg PO Q6 PRN #30 tab PRN Reason: Pain, Mild (1-3) Naproxen [Naprosyn Tab] 375 mg PO BID #20 tab traMADol [Ultram] 50 mg PO Q6 PRN #10 tab PRN Reason: Pain Instructions: Knee Sprain (ED), Acute Low Back Pain (ED) Forms: [facility] (Icelandic) - Clinical Impression Clinical Impression: Knee sprain, Back contusion - Scribe Statement The provider has reviewed the documentation as recorded by the Scribe Maddie [email or web address] All medical record entries made by the Scribe were at my direction and personally dictated by me. I have reviewed the chart and agree that the record accurately reflects my personal performance of the history, physical exam, medical decision making, and the department course for this patient. I have also personally directed, reviewed, and agree with the discharge instructions and disposition.
[2017-07-21] MEDS ORDERED: Naproxen 550 mg Tab PO STA (20:00)
[2017-07-21] MEDS ORDERED: Naproxen 550 mg Tab PO ONE (20:04)
[2017-07-21 21:45] VITALS: RESP 20
--- NOTE | 2017-07-22 08:42 | RAD ---
PROCEDURE: Radiographs of the Lumbar Spine. HISTORY: fall onto back, low back pain COMPARISON: No prior. FINDINGS: BONES: Normal alignment. No listhesis. No fracture. L4-5 and L5-S1 sclerotic hypertrophic facet arthrosis. Anterior superior endplate spondylosis L4 and L5 most notable. DISC SPACES: Disc space narrowing and vacuum disc phenomena L5-S1. OTHER FINDINGS: None. IMPRESSION: Degenerative changes. No fracture
--- NOTE | 2017-07-22 08:48 | RAD ---
PROCEDURE: Left Knee Radiographs. HISTORY: Pain. COMPARISON: None. FINDINGS: BONES: No acute fracture. 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 Anterior tibial cortical hyperostoses unchanged. Proximal patellar spurring- blending quadriceps enthesophyte. Peripatellar blending enthesophyte also suggested JOINTS: Tricompartmental osteoarthrosis. Tibial spine spurring. Medial femoral condylar osteophytosis - intercondylar pointing. Medial knee joint line spurring and corresponding joint-space narrowing most notable. JOINT EFFUSION: None OTHER FINDINGS: None. IMPRESSION: No acute fracture. 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 Quadriceps insertional enthesophyte
== END 2017-07-21 21:44 | disposition home or self-care (01) ==
LOC: C.ER 18:43
DX: S83.92XA Sprain of unspecified site of left knee, initial encounter (principal); S30.0XXA Contusion of lower back and pelvis, initial encounter; W18.39XA Other fall on same level, initial encounter; Y93.89 Activity, other specified; Y92.89 Other specified places as the place of occurrence of the external cause

== ENCOUNTER 2017-09-13 23:07 | Emergency (ER) | payer MEDICARE ==
[2017-09-13 23:20] VITALS: RESP 20
[2017-09-13] MEDS ORDERED: Naproxen 550 mg Tab PO STA (23:43)
[2017-09-13] MEDS ORDERED: Naproxen 550 mg Tab PO ONE (23:47)
--- NOTE | 2017-09-13 23:52 | C.PDOC ---
History Of Present Illness Patient presents to ED c/o left sided throbbing chest pain that began several hours ago. Pain worsens with palpation of area and movement of left shoulder. She tried taking alza seltzer without improvement. Patient denies cough, fever , abdominal pain, nausea/vomiting, SOB. Patient recently admitted/discharged from [facility] for chest pain. Time Seen by Provider: 09/13/17 23:36 Chief Complaint (Nursing): Chest Pain History Per: Patient History/Exam Limitations: no limitations Onset/Duration Of Symptoms: Hrs Current Symptoms Are (Timing): Still Present Severity: Mild Quality: "Pain" Exacerbating Factors: Movement, Other (palpation of area) Past Medical History Reviewed: Historical Data, Nursing Documentation, Vital Signs Vital Signs: Last Vital Signs Temp 97.5 F L 09/13/17 23:14 Pulse 58 L 09/13/17 23:14 Resp 20 09/13/17 23:14 BP 175/90 H 09/13/17 23:14 Pulse Ox 99 09/13/17 23:58 - Medical History PMH: Anxiety, Arthritis (of B/L knee L>R and spine), Asthma, Back Problems, Bronchitis, COPD, Diabetes, HTN, Pneumonia - [facility] Procedures INSPECTION OF LOWER INTESTINAL TRACT, ENDO (01/07/16) INSPECTION OF UPPER INTESTINAL TRACT, ENDO (01/07/16) Family History: States: Diabetes - Social History Hx Tobacco Use: No Hx Alcohol Use: No Hx Substance Use: No - Immunization History Hx Tetanus Toxoid Vaccination: No Hx Influenza Vaccination: No Hx Pneumococcal Vaccination: No Review Of Systems Except As Marked, All Systems Reviewed And Found Negative. Constitutional: Negative for: Fever, Chills Cardiovascular: Positive for: Chest Pain Respiratory: Negative for: Cough, Shortness of Breath Gastrointestinal: Negative for: Nausea, Vomiting, Abdominal Pain, Diarrhea Skin: Negative for: Rash Physical Exam - Physical Exam Appears: Well, Non-toxic, No Acute Distress, Other (anxious, speaking in full sentences) Skin: Normal Color, Warm, No Rash Oral Mucosa: Moist Chest: Tenderness (left upper chest mild TTP) Cardiovascular: Rhythm Regular Respiratory: Normal Breath Sounds, No Rales, No Rhonchi, No Wheezing Gastrointestinal/Abdominal: Normal Exam, Bowel Sounds, Soft, No Tenderness Extremity: Normal ROM, No Pedal Edema Pulses: Left Dorsalis Pedis: Normal, Right Dorsalis Pedis: Normal Neurological/Psych: Oriented x3 ED Course And Treatment ECG: Interpreted By Me, Viewed By Me (sinus bradycardia 57bpm, normal axis, no acute ST/T wave changes) ECG Interpretation: No Acute Changes O2 Sat by Pulse Oximetry: 99 (RA) Pulse Ox Interpretation: Normal Progress Note: Prior records reviewed, patient had stress test, echo done (both WNL), cardio consult, cardiac enzyems x 3. Do not suspect cardiac etiology for current pain. Medical Decision Making Medical Decision Making: echo: Accession No. : [id number] Patient Name / ID : NATCAHA AYALA / [id number] Exam Date : 08/30/2017 08:44:48 ( Approved ) Study Comment : Sex / Age : F / 67Y Creator : Mulugeta Meyer Dictator : Wildland Firefighter : Brush Sander : Yohannes Keenan Approver2 : Report Date : 08/30/2017 09:43:34 My Comment : APPROVED REPORT EXAM: Two-dimensional and M-mode echocardiogram with Doppler and color Doppler. Other Information Quality : Good Rhythm : NSR INDICATION Dyspnea COPD RISK FACTORS Hypertension Diabetes M-Mode DIMENSIONS RVDd 2.96 (2.1-3.2cm) Left Atrium (MM) 2.98 (2.5-4.0cm) IVSd 0.76 (0.7-1.1cm) Aortic Root 2.53 (2.2-3.7cm) LVDd 3.89 (4.0-5.6cm) Aortic Cusp Exc. 1.60 (1.5-2.0cm) PWd 0.68 (0.7-1.1cm) FS (%) 56 % LVDs 1.72 (2.0-3.8cm) LVEF (%) 87 (>50%) Mitral Valve MV E Velocity 86.3cm/s MV A Velocity 121.9cm/s E/A ratio 0.7 TDI E/Lateral E' 0.0 E/Medial E' 0.0 Tricuspid Valve TR Peak Velocity 207cm/s TR Peak Gr. 18mmHg RVSP 23mmHg LEFT VENTRICLE The left ventricle is normal size. There is borderline concentric left ventricular hypertrophy. The left ventricular function is normal. The left ventricular ejection fraction is within the normal range. There is normal LV segmental wall motion. Transmitral Doppler flow pattern is Grade I-abnormal relaxation pattern. RIGHT VENTRICLE The right ventricle is normal size. There is normal right ventricular wall thickness. The right ventricular systolic function is normal. ATRIA The left atrium size is normal. The right atrium size is normal. AORTIC VALVE The aortic valve is normal in structure. No aortic regurgitation is present. MITRAL VALVE The mitral valve is mildly thickened. There is no evidence of mitral valve prolapse. TRICUSPID VALVE The tricuspid valve is normal in structure. GREAT VESSELS The aortic root is normal in size. PERICARDIAL EFFUSION There is a trace loculated anterior pericardial effusion. <Conclusion> There is borderline concentric left ventricular hypertrophy. The left ventricular function is normal. The left ventricular ejection fraction is within the normal range. There is normal LV segmental wall motion. Transmitral Doppler flow pattern is Grade I-abnormal relaxation pattern. STRESS TEST Accession No. : [id number] Patient Name / ID : NATACHA AYALA / [id number] Exam Date : 08/30/2017 08:16:40 ( Approved ) Study Comment : Sex / Age : F / 67Y Creator : Sujatha Salvador Dictator : Wildland Firefighter : Brush Sander : Perry Posadas Approver2 : Report Date : 08/30/2017 11:00:44 My Comment : APPROVED REPORT Protocol: LEXISCAN Test Type: LEXISCAN STRESS Test Indications: CP Medications: ZOFRAN GIVEN Target HR: 154 bpm Resting ECG: normal Resting Heart Rate: 83 bpm Resting Blood Pressure: 132/80mmHg submaximum (85%): 131 bpm TEST SUMMARY PREINFSN SUPINE 00:02 . . 1.0 74 / . 0 . PREINFSN HYPERV. 09:57 0.0 0.0 1.0 84 132/80 . 1 . INFUSION DOSE 1 00:30 0.0 0.0 1.0 81 / . 0 . POSTINFSN 08:23 0.0 0.0 1.0 84 130/80 . 0 . PROCEDURE Pharmacologic stress testing was performed using 0.4mg per 5ml of regadenoson given intravenously over 7-10 seconds. Reversal agent aminophyline 75 mg, given intravenously for Headache.Nausea. POST EXERCISE Reason for Termination: Stress test completed Target HR: No Max HR: 81 bpm 93% of Maximum Predicted HR: 154 bpm Exercise duration: 00:30 min:sec, 0 Stage Exercise capacity: 1.0METs Max Blood Pressure: 132/80mmHg Blood Pressure response to exercise: normal resting BP - appropriate response Heart Rate response to exercise: appropriate Chest Pain: No, none Angina index: 0 Arrhythmia: No, none ST Change: No, none Deviation: 0 mm INTERPRETATION Stress EKG Conclusion: Patient received 75mg of Aminophyllin due to vomiting. Nuclear images pending EXAM: Myocardial Perfusion STRESS/REST Imaging Protocol The imaging protocol used to acquire images was Stress Tc-99m/rest Tc-99m 1 day Rest Spect myocardial perfusion imaging was performed in supine position 45 minutes following the injection of 32.4 mCi of Tc-99 Myoview. Gated Stress Spect was performed 45 minutes after intravenous 13.2 mCi Tc-99 Myoview injection. The images were gated to evaluate regional wall motion and calculate ventricular ejection fraction.Images were reconstructed using backfilter projection method in short horizontal and verticle long axis. Spect slices were generated. RESTING DATA EDV44.00ml CO2.00L/min ESV12.00ml Myocardial Mass90.00g Av. Heart Rate64.00bpm EF73.00% STRESS DATA EDV43.00ml CO2.00L/min ESV11.00ml Myocardial Mass92.00g EF74.00% Regional WT score at stress:0.00 Regional WM score at stress:0.00 Summed WT score at stress:11.00 Av. Heart Rate63.00bpm Summed WM score at stress:9.00 LV Perf. Quant 17 Seg. SSS 3.00 17 Seg. SRS 3.00 17 Seg. SDS 2.00 Stress Defect Extent (% LAD) 0.00 Rest Defect Extent (% LAD) 1.90 Rev. Defect Extent (% LAD) 0.00 Stress Defect Extent (% LCX) 18.80 Rest Defect Extent (% LCX) 17.50 Rev. Defect Extent (% LCX) 0.00 Stress Defect Extent (% RCA) 0.00 Rest Defect Extent (% RCA) 1.10 Rev. Defect Extent (% RCA) 0.00 Stress Defect Extent (% STALIN) 3.30 Rest Defect Extent (% STALIN) 7.80 Rev. Defect Extent (% STALIN) 0.00 Other Information Quality:Good IMPRESSION Normal Myocardial Perfusion exercise stress study Left Ventricle LV Function:Left ventricle systolic function is normal. The Ejection Fraction is >70%. Conclusion 1. Normal lexiscan nuclear stress test. Normal EF 2. Patient received Aminophyllin due to vomitings during the stress test which may alter the test result 3. Clinical correlation recommended Disposition Counseled Patient/Family Regarding: Studies Performed, Diagnosis, Need For Followup, Rx Given - Disposition Referrals: Sole Palencia DO [[facility]] - Disposition: HOME/ ROUTINE Disposition Time: 00:00 Condition: STABLE Additional Instructions: FOLLOW UP WITH YOUR DOCTOR IN 1-2 DAYS USE MEDICATION NEEDED FOR PAIN RETURN TO ER IF SYMPTOMS WORSEN Prescriptions: Cyclobenzaprine [Cyclobenzaprine HCl] 10 mg PO BID PRN #15 tab PRN Reason: Muscle Spasm Naproxen 375 mg PO BID PRN #20 tablet PRN Reason: pain Instructions: Noncardiac Chest Pain (ED) Forms: [email or web address] (Guinean) Print Language: TAJIK - POA Present On Arrival: None - Clinical Impression Clinical Impression: Non-cardiac chest pain
[2017-09-14 00:38] VITALS: BP 152/71; PULSE 68; TEMP 97.2; O2SAT 98
--- NOTE | 2017-09-14 10:34 | RAD ---
HISTORY: Left-sided chest pain. COMPARISON: 08/28/2017 TECHNIQUE: Chest PA and lateral FINDINGS: LUNGS: No active pulmonary disease. PLEURA: No significant pleural effusion identified. No pneumothorax apparent. CARDIOVASCULAR: Normal. OSSEOUS STRUCTURES: No significant abnormalities. VISUALIZED UPPER ABDOMEN: Normal. OTHER FINDINGS: None. IMPRESSION: No active disease. No significant interval change compared to the prior examination(s). Concordant results with the preliminary interpretation rendered by the emergency department physician procedure.
--- NOTE | 2017-09-15 13:12 | CARD ---
APPROVED REPORT EKG Measurement Heart [id number] IA 112P2 [id number] <Conclusion> Normal sinus rhythm Minimal voltage criteria for LVH, may be normal variant Borderline ECG
== END 2017-09-14 00:38 | disposition home or self-care (01) ==
LOC: C.ER 23:07
DX: R07.89 Other chest pain (principal); I10 Essential (primary) hypertension

== ENCOUNTER 2018-03-16 11:37 | Emergency (ER) | payer MEDICARE ==
[2018-03-16 11:58] VITALS: O2SAT 100
[2018-03-16 12:51] LABS: BASO # 0.1 K/uL (0.0-0.2); BASO % 0.9 % (0.0-2.0); EOS # 0.1 K/uL (0.0-0.7); HEMOGLOBIN 13.1 g/dL (11.0-16.0); LYMPH # 2.2 K/uL (1.0-4.3); LYMPH % 31.9 % (20.0-40.0); MEAN CELL VOLUME 86.2 fL (81.0-99.0); MEAN CORPUSCULAR HGB CONC 34.8 g/dL (33.0-37.0); MEAN PLATELET VOLUME 11.1 fL (7.2-11.7); MONO # 0.5 K/uL (0.0-0.8); MONO % 7.4 % (0.0-10.0); NEUT % 57.8 % (50.0-75.0); RBC 4.37 Mil/uL (3.80-5.20); RED CELL DISTRIBUTION WIDTH 12.5 % (11.5-14.5)
--- NOTE | 2018-03-16 12:56 | C.PDOC ---
History Of Present Illness 67 y/o female with dm, (not compliant with meds) htn, c/o epigastric pain that radiates to the back x 3 weeks, along with back pain x 3 weeks. pain in epigastric area worse with movement. denies chest pain . pt reports she fell onto her buttock 3 weeks ago because her left knee gave way, but did not land on right side. Time Seen by Provider: 03/16/18 12:18 Chief Complaint (Nursing): Rib Injury Past Medical History Vital Signs: Last Vital Signs Temp 98.2 F 03/16/18 14:23 Pulse 51 L 03/16/18 14:23 Resp 17 03/16/18 14:23 BP 127/78 03/16/18 14:23 Pulse Ox 100 03/16/18 14:37 - Medical History PMH: Anxiety, Arthritis (of B/L knee L>R and spine), Asthma, Back Problems, Bronchitis, COPD, Diabetes, HTN, Pneumonia - [facility] Procedures INSPECTION OF LOWER INTESTINAL TRACT, ENDO (01/07/16) INSPECTION OF UPPER INTESTINAL TRACT, ENDO (01/07/16) Family History: States: Diabetes - Social History Hx Tobacco Use: No Hx Alcohol Use: No Hx Substance Use: No - Immunization History Hx Tetanus Toxoid Vaccination: No Hx Influenza Vaccination: Yes Hx Pneumococcal Vaccination: No ED Course And Treatment - Laboratory Results Result Diagrams: 03/16/18 12:51 03/16/18 12:51 ECG: Viewed By Md ECG Rhythm: Sinus Bradycardia Interpretation Of ECG: min voltage criteria for lvh Rate From EC O2 Sat by Pulse Oximetry: 100 Pulse Ox Interpretation: Normal Medical Decision Making Medical Decision Making: pt with multiple complaints, reports no medications taken today. pt sa her pmd yesterday. pt appears mildly confused with mild tremor to hands. PMD Dr aPlencia called, pt discussed, labs, ekg, and xrays reviewed with her. pt to be discharged with pmd follow up. Disposition Discussed With : Sole Palencia Doctor Will See Patient In The: Office Counseled Patient/Family Regarding: Studies Performed, Diagnosis, Need For Followup - Disposition Referrals: Sole Palencia DO [[facility]] - Disposition: HOME/ ROUTINE Disposition Time: 16:04 Condition: GOOD Additional Instructions: Please take all your medications as prescribed by Dr Palencia. Please call Dr Palencia's office tomorrow to arrange for a clpose follow up appointment with her. Forms: [facility] (Tamazight), General Discharge Instructions - Clinical Impression Clinical Impression: Back pain, Hyperglycemia
[2018-03-16 12:59] LABS: SQUAMOUS EPITHIAL 2 /hpf (0-5); URINE BILIRUBIN NEGATIVE (NEGATIVE); URINE BLOOD NEGATIVE (NEGATIVE); URINE CLARITY Clear (Clear); URINE COLOR Yellow (YELLOW); URINE GLUCOSE (UA) 3+ mg/dL (Normal); URINE LEUKOCYTE ESTERASE NEG Leu/uL (Negative); URINE PROTEIN NEGATIVE (NEGATIVE); URINE UROBILINOGEN NORMAL mg/dL (0.2-1.0)
[2018-03-16 13:03] LABS: ALB/GLOB RATIO 1.2 (1.0-2.1); ALBUMIN 4.1 g/dL (3.5-5.0); ALT/SGPT 14 U/L (9-52); AST/SGOT 20 U/L (14-36); BLOOD UREA NITROGEN 22 mg/dL (7-17); CALCIUM 9.9 mg/dl (8.6-10.4); GFR AFRICAN-AMERICAN > 60; GFR NON-AFRICAN AMERICAN > 60; LIPASE 49 U/L (23-300)
--- NOTE | 2018-03-16 13:10 | RAD ---
HISTORY: midline tenderness COMPARISON: Chest radiograph dated 09/13/2017. FINDINGS: BONES: Alignment maintained. No fracture. DISC SPACES: Mild multilevel narrowing. SOFT TISSUES: Normal. OTHER FINDINGS: None. IMPRESSION: No acute fracture. Mild multilevel degenerative changed.
--- NOTE | 2018-03-16 13:10 | RAD ---
PROCEDURE: Radiographs of the Lumbar Spine. HISTORY: midline tendenress COMPARISON: Lumbar spine radiographs dated 07/21/2017. FINDINGS: BONES: Normal alignment. No listhesis. No fracture. DISC SPACES: Mild multilevel disc space narrowing. OTHER FINDINGS: None. IMPRESSION: No acute fracture. Mild multilevel degenerative changes.
[2018-03-16] MEDS ORDERED: Sodium Chloride 0.9% 1,000 ML IV ONE (13:35)
[2018-03-16 16:46] VITALS: BP 116/78; PULSE 64; RESP 16; TEMP 98.1
--- NOTE | 2018-03-17 22:33 | CARD ---
APPROVED REPORT EKG Measurement Heart [id number] IA 136P41 [id number] <Conclusion> Sinus bradycardia Minimal voltage criteria for LVH, may be normal variant Borderline ECG
== END 2018-03-16 16:46 | disposition home or self-care (01) ==
LOC: C.ER 11:37
DX: E11.65 Type 2 diabetes mellitus with hyperglycemia (principal); M54.9 Dorsalgia, unspecified; I10 Essential (primary) hypertension; Z91.19 Patient's noncompliance with other medical treatment and regimen
CPT/HCPCS: 72070; 72100; 80053; 81001; 82948; 83690; 84484; 85025; 93005; 96360; 99284; J7040

== ENCOUNTER 2018-04-09 11:40 | Emergency (ER) | payer MEDICARE ==
[2018-04-09 11:54] VITALS: TEMP 98.9
[2018-04-09 12:44] LABS: BASO % 0.6 % (0.0-2.0); EOS # 0.2 K/uL (0.0-0.7); EOS % 3.4 % (0.0-4.0); MEAN CORPUSCULAR HEMOGLOBIN 30.7 pg (27.0-31.0); MEAN CORPUSCULAR HGB CONC 34.3 g/dL (33.0-37.0); MEAN PLATELET VOLUME 9.4 fL (7.2-11.7); MONO # 0.7 K/uL (0.0-0.8); MONO % 8.9 % (0.0-10.0); NEUT # 4.3 K/uL (1.8-7.0); NEUT % 59.1 % (50.0-75.0); NRBC % 0.1 % (0.0-2.0); RBC 3.37 Mil/uL (3.80-5.20); RED CELL DISTRIBUTION WIDTH 12.6 % (11.5-14.5); WHITE BLOOD COUNT 7.3 K/uL (4.8-10.8)
[2018-04-09 12:45] LABS: HEMOGLOBIN 10.4 g/dL (11.0-16.0); MEAN CELL VOLUME 89.6 fL (81.0-99.0)
[2018-04-09] MEDS ORDERED: Albuterol-Ipratrop 3 mg / 0.5 (3 ml) UD INH STA (12:46)
[2018-04-09] MEDS ORDERED: Albuterol-Ipratrop 3 mg / 0.5 (3 ml) UD ONE (12:56)
[2018-04-09 13:00] LABS: ALBUMIN 3.6 g/dL (3.5-5.0); ALT/SGPT 12 U/L (9-52); AST/SGOT 34 U/L (14-36); BLOOD UREA NITROGEN 11 mg/dL (7-17); CALCIUM 9.4 mg/dl (8.6-10.4); GFR AFRICAN-AMERICAN > 60; GFR NON-AFRICAN AMERICAN > 60
[2018-04-09 13:09] LABS: B-TYPE NATRIURETIC PEPTIDE 154 pg/mL (0-900)
--- NOTE | 2018-04-09 14:23 | RAD ---
HISTORY: SOB COMPARISON: No prior. TECHNIQUE: Chest PA and lateral FINDINGS: LUNGS: No evidence of new infiltrate or consolidation in the lungs. PLEURA: No significant pleural effusion identified. No pneumothorax apparent. CARDIOVASCULAR: Normal. OSSEOUS STRUCTURES: No significant abnormalities. VISUALIZED UPPER ABDOMEN: Normal. OTHER FINDINGS: None. IMPRESSION: No significant interval change noted since the previous exam.
--- NOTE | 2018-04-09 14:40 | C.PDOC ---
History Of Present Illness Patient is a 67 y/o female who presents to the ED with a complaint of an ongoing dry cough for the last 10 days. Patient notes fer discomfort only when coughing; denies any SOB or fever. No other physical complaints at this time. Time Seen by Provider: 04/09/18 12:02 Chief Complaint (Nursing): Shortness Of Breath History Per: Patient History/Exam Limitations: no limitations Onset/Duration Of Symptoms: Days (10), Persistent Current Symptoms Are (Timing): Still Present Associated Symptoms: Other (chest discomfort). denies: Fever Recent travel outside of the [place]: No Past Medical History Reviewed: Historical Data, Nursing Documentation, Vital Signs Vital Signs: Last Vital Signs Temp 98.9 F 04/09/18 11:50 Pulse 59 L 04/09/18 14:56 Resp 18 04/09/18 14:56 BP 148/79 04/09/18 14:56 Pulse Ox 98 04/09/18 15:38 - Medical History PMH: Anxiety, Arthritis, Asthma, Back Problems, Bronchitis, COPD, Diabetes, HTN , Pneumonia Surgical History: No Surg Hx - [facility] Procedures INSPECTION OF LOWER INTESTINAL TRACT, ENDO (01/07/16) INSPECTION OF UPPER INTESTINAL TRACT, ENDO (01/07/16) Family History: States: Diabetes - Social History Hx Tobacco Use: No Hx Alcohol Use: No Hx Substance Use: No - Immunization History Hx Tetanus Toxoid Vaccination: No Hx Influenza Vaccination: Yes Hx Pneumococcal Vaccination: No Review Of Systems Constitutional: Negative for: Fever Cardiovascular: Positive for: Other (chest discomfort) Respiratory: Positive for: Cough (dry). Negative for: Shortness of Breath Physical Exam - Physical Exam Appears: Well, Non-toxic Skin: Normal Color, Warm, Dry Head: Atraumatic, Normacephalic Oral Mucosa: Moist Throat: Normal, No Erythema, No Exudate Neck: Supple Lymphatic: Deferred Chest: Symmetrical, Tenderness (reproduceable chest wall tenderness on palpation ) Cardiovascular: Rhythm Regular, No Murmur Respiratory: Normal Breath Sounds, No Rales, No Rhonchi, No Wheezing Gastrointestinal/Abdominal: Soft, No Tenderness Extremity: Normal ROM (x4), No Swelling Neurological/Psych: Oriented x3, Normal Speech, Normal Cognition ED Course And Treatment - Laboratory Results Result Diagrams: 04/09/18 12:39 04/09/18 12:39 O2 Sat by Pulse Oximetry: 98 - Radiology CXR: Interpreted by Me, Viewed By Me CXR Interpretation: Yes: No Acute Disease Progress Note: EKG and UA ordere. Toradolal, duoneb, and nebulizer treatment administered. On re-eval, patient is resting comfortably and stable for dischare. Patient to be discharged with cough and chest wall pain. Advised to follow up with PMD in 1-2 days. Disposition Counseled Patient/Family Regarding: Studies Performed, Diagnosis, Need For Followup, Rx Given - Disposition Referrals: Sole Palencia DO [[facility]] - Disposition: HOME/ ROUTINE Disposition Time: 15:36 Condition: IMPROVED Additional Instructions: follow up with your doctor in 2 days call to make an appointment take medication as needed for pain return to ER if symptoms worsens or progress Prescriptions: Acetaminophen/Codeine [Tylenol/Codeine 300 MG/30 MG] 1 tab PO Q6H PRN #12 tab PRN Reason: Pain, Severe (8-10) Naproxen [Naprosyn] 500 mg PO BID PRN #16 tab PRN Reason: Pain, Moderate (4-7) Instructions: Cough, Adult (DC), Costochondritis (DC) Forms: [facility] (Swedish), General Discharge Instructions - Clinical Impression Clinical Impression: Cough, Chest wall pain - Scribe Statement The provider has reviewed the documentation as recorded by the Scribe Hortencia Ma All medical record entries made by the Scribe were at my direction and personally dictated by me. I have reviewed the chart and agree that the record accurately reflects my personal performance of the history, physical exam, medical decision making, and the department course for this patient. I have also personally directed, reviewed, and agree with the discharge instructions and disposition.
[2018-04-09 14:57] VITALS: BP 148/79; PULSE 59; RESP 18
[2018-04-09 15:13] VITALS: O2SAT 98
[2018-04-09 15:17] LABS: SQUAMOUS EPITHIAL 6 /hpf (0-5); URINE BACTERIA RARE (<OCC); URINE BILIRUBIN NEGATIVE (NEGATIVE); URINE BLOOD NEGATIVE (NEGATIVE); URINE CLARITY Hazy (Clear); URINE COLOR Yellow (YELLOW); URINE GLUCOSE (UA) NORMAL (Normal); URINE LEUKOCYTE ESTERASE 1+ Leu/uL (Negative); URINE PROTEIN NEGATIVE (NEGATIVE); URINE UROBILINOGEN NORMAL mg/dL (0.2-1.0)
--- NOTE | 2018-04-13 22:38 | CARD ---
APPROVED REPORT EKG Measurement Heart [id number] NE 134P20 [id number] <Conclusion> Normal sinus rhythm Normal ECG
== END 2018-04-09 15:52 | disposition home or self-care (01) ==
LOC: C.ER 11:40
DX: R05 Cough (principal); R07.89 Other chest pain
CPT/HCPCS: 71046; 80053; 81001; 82550; 83880; 84484; 85025; 94640; 96374; 99284; J1885

== ENCOUNTER 2018-08-13 18:32 | Emergency (ER) | payer MEDICARE ==
[2018-08-13 18:49] VITALS: BMI 24.1
[2018-08-13 19:01] VITALS: O2SAT 100
[2018-08-13] MEDS ORDERED: Sodium Chloride 0.9% 500 ML IV ONE (19:40)
[2018-08-13] MEDS ORDERED: Sodium Chloride 0.9% 1,000 ML ONE (19:46)
[2018-08-13 19:55] LABS: BASO # 0.1 K/uL (0.0-0.2); BASO % 0.7 % (0.0-2.0); EOS # 0.2 K/uL (0.0-0.7); EOS % 2.2 % (0.0-4.0); HEMOGLOBIN 13.4 g/dL (11.0-16.0); LYMPH % 30.7 % (20.0-40.0); MEAN CELL VOLUME 86.6 fL (81.0-99.0); MEAN CORPUSCULAR HEMOGLOBIN 29.7 pg (27.0-31.0); MEAN CORPUSCULAR HGB CONC 34.3 g/dL (33.0-37.0); MEAN PLATELET VOLUME 10.7 fL (7.2-11.7); MONO # 0.7 K/uL (0.0-0.8); MONO % 7.3 % (0.0-10.0); NEUT # 5.7 K/uL (1.8-7.0); NEUT % 59.1 % (50.0-75.0); NRBC % 0.1 % (0.0-2.0); RBC 4.52 Mil/uL (3.80-5.20); RED CELL DISTRIBUTION WIDTH 12.5 % (11.5-14.5); WHITE BLOOD COUNT 9.7 K/uL (4.8-10.8)
[2018-08-13 20:06] LABS: ALB/GLOB RATIO 1.2 (1.0-2.1); ALBUMIN 4.6 g/dL (3.5-5.0); ALT/SGPT 17 U/L (9-52); AST/SGOT 24 U/L (14-36); BLOOD UREA NITROGEN 20 mg/dL (7-17); CALCIUM 10.4 mg/dl (8.6-10.4); GFR NON-AFRICAN AMERICAN > 60
--- NOTE | 2018-08-13 20:29 | RAD ---
PROCEDURE: Left Knee Radiographs. HISTORY: Left knee pain after fall COMPARISON: Left knee radiographs performed 07/21/17 FINDINGS: Rotated lateral view. BONES: No acute displaced fracture. Degenerative changes including tenting of the intercondylar notch. Suprapatellar and infrapatellar enthesophytes.. JOINTS: No dislocation. Tricompartmental joint space narrowing. JOINT EFFUSION: No significant joint effusion. OTHER FINDINGS: None. IMPRESSION: Degenerative changes. No acute displaced fracture, dislocation, or significant joint effusion identified. If high clinical index of suspicion, suggest CT for further evaluation. Otherwise if symptoms persist or if there is continued clinical concern, x-ray follow-up in 7-10 days should be considered.
[2018-08-13] MEDS ORDERED: (Novolin R) Insulin Human Regular 100 units/ml vial IVP ONE (20:42)
[2018-08-13] MEDS ORDERED: (Novolin R) Insulin Human Regular 100 units/ml vial ONE (20:52)
--- NOTE | 2018-08-13 21:07 | C.PDOC ---
History Of Present Illness 68 year old female presents to ED for evaluation of fall that happened 2 weeks ago. Patient states the fall occurred at her home when her knee gave out, twisted inwards, and she fell onto it. Patient reports taking Tylenol and Codein e occasionally for pain with no relief. Patient states she has a history of diabetes and she is not always compliant with her medications of metformin, januvia, and lantus insulin. Denies any other injuries, headache, dizziness, chest pain, shortness of breath, and palpitations. Time Seen by Provider: 08/13/18 19:18 Chief Complaint (Nursing): Lower Extremity Problem/Injury History Per: Patient History/Exam Limitations: no limitations Onset/Duration Of Symptoms: Days Current Symptoms Are (Timing): Still Present Past Medical History Reviewed: Historical Data, Nursing Documentation, Vital Signs Vital Signs: Last Vital Signs Temp 97.8 F 08/13/18 18:51 Pulse 63 08/13/18 18:51 Resp 20 08/13/18 18:51 BP 144/81 08/13/18 18:51 Pulse Ox 100 08/13/18 18:51 - Medical History PMH: Anxiety, Arthritis, Asthma, Back Problems, Bronchitis, COPD, Diabetes, HTN, Pneumonia Surgical History: No Surg Hx - [facility] Procedures INSPECTION OF LOWER INTESTINAL TRACT, ENDO (01/07/16) INSPECTION OF UPPER INTESTINAL TRACT, ENDO (01/07/16) Family History: States: Diabetes - Social History Hx Tobacco Use: No Hx Alcohol Use: No Hx Substance Use: No - Immunization History Hx Tetanus Toxoid Vaccination: No Hx Influenza Vaccination: Yes Hx Pneumococcal Vaccination: No Review Of Systems Constitutional: Negative for: Fever, Chills Cardiovascular: Negative for: Chest Pain, Palpitations Respiratory: Negative for: Shortness of Breath Gastrointestinal: Negative for: Nausea, Vomiting Musculoskeletal: Positive for: Leg Pain (Left knee pain.) Neurological: Negative for: Headache, Dizziness Physical Exam - Physical Exam Appears: Non-toxic, No Acute Distress Skin: Warm, Dry Head: Atraumatic, Normacephalic Eye(s): bilateral: PERRL, EOMI Oral Mucosa: Moist Neck: Supple Chest: Symmetrical, No Deformity Cardiovascular: Rhythm Regular Respiratory: Normal Breath Sounds, No Rales, No Rhonchi, No Wheezing Gastrointestinal/Abdominal: Soft, No Tenderness Extremity: Normal ROM, Tenderness (Mild diffuse tenderness to left knee.), No Calf Tenderness, No Swelling, Other (No erythema) Pulses: Left Dorsalis Pedis: Normal, Right Dorsalis Pedis: Normal Neurological/Psych: Oriented x3, Normal Motor, Normal Sensation ED Course And Treatment - Laboratory Results Result Diagrams: 08/13/18 19:47 08/13/18 19:47 O2 Sat by Pulse Oximetry: 100 (RA) Pulse Ox Interpretation: Normal - Other Rad X-ray left knee X-Ray: Interpreted by Me, Viewed By Me Interpretation: FINDINGS: Rotated lateral view. BONES: No acute displaced fracture. Degenerative changes including tenting of the intercondylar notch. Suprapatellar and infrapatellar enthesophytes.. JOINTS: No dislocation. Tricompartmental joint space narrowing. JOINT EFFUSION: No significant joint effusion. OTHER FINDINGS: None. IMPRESSION: Degenerative changes. No acute displaced fracture, dislocation, or significant joint effusion identified. If high clinical index of suspicion, suggest CT for further evaluation. Otherwise if symptoms persist or if there is continued clinical concern, x-ray follow-up in 7-10 days should be considered. Progress Note: Labs, blood work, x-ray knee, IV toradol, IV fluids, novolin ordered and reviewed . Disposition Counseled Patient/Family Regarding: Studies Performed, Diagnosis, Need For Followup, Rx Given - Disposition Referrals: Sole Palencia DO [[facility]] - Ana Lilia Gifford MD [Staff Provider] - Disposition: HOME/ ROUTINE Disposition Time: 21:40 Condition: STABLE Additional Instructions: FOLLOW UP WITH YOUR DOCTOR IN 1-2 DAYS, AND WITH ORTHOPEDICS WITHIN 1 WEEK USE PAIN MEDICATION NEEDED RETURN TO ER IF SYMPTOMS WORSEN Prescriptions: Naproxen 375 mg PO BID PRN #20 tablet PRN Reason: pain Instructions: Chronic Knee Pain (DC), Hyperglycemia, Adult (DC) Forms: [facility] (Bulgarian) Print Language: ARABIC - POA Present On Arrival: Falls Or Trauma - Clinical Impression Clinical Impression: Left knee pain, Knee sprain, Hyperglycemia, Noncompliance with medication regimen - Scribe Statement The provider has reviewed the documentation as recorded by the Jimmyibnahid Abel Provider Attestation: All medical record entries made by the Jimmyibnahid were at my direction and personally dictated by me. I have reviewed the chart and agree that the record accurately reflects my personal performance of the history, physical exam, medical decision making, and the department course for this patient. I have also personally directed, reviewed, and agree with the discharge instructions and disposition.
[2018-08-13 21:37] VITALS: BP 135/79; PULSE 76; RESP 18; TEMP 97.6
== END 2018-08-13 21:52 | disposition home or self-care (01) ==
LOC: C.ER 18:32
DX: M25.562 Pain in left knee (principal); S83.92XA Sprain of unspecified site of left knee, initial encounter; W18.30XA Fall on same level, unspecified, initial encounter; Y92.009 Unspecified place in unspecified non-institutional (private) residence as the place of occurrence of the external cause; E11.65 Type 2 diabetes mellitus with hyperglycemia; I10 Essential (primary) hypertension; J44.9 Chronic obstructive pulmonary disease, unspecified; Z91.14 Patient's other noncompliance with medication regimen
CPT/HCPCS: 73562; 80053; 82948; 85025; 96374; 96375; 99284; J1885; J7040

== ENCOUNTER 2019-03-26 09:20 | Emergency (ER) | payer MEDICARE ==
[2019-03-26 09:20] VITALS: BMI 24.1
[2019-03-26 09:30] VITALS: RESP 18
[2019-03-26] MEDS ORDERED: Lidocaine 5% Patch TD STA (10:24)
[2019-03-26] MEDS ORDERED: Lidocaine 5% Patch TD ONE (10:32)
--- NOTE | 2019-03-26 11:31 | C.PDOC ---
History Of Present Illness 68 y,o. 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 . Admits to taking 1 baby aspirin a day only for pain. . Denies bladder/bowel incontinence, numbness, tingling, or any other associated symptoms. Time Seen by Provider: 03/26/19 10:11 Chief Complaint (Nursing): Back Pain History Per: Patient History/Exam Limitations: no limitations Onset/Duration Of Symptoms: Days Current Symptoms Are (Timing): Still Present Previous Symptoms: Back Pain (lower. ) Associated Symptoms: denies: Incontinence, New Weakness, New Numbness Recent travel outside of the [place]: No Past Medical History Reviewed: Historical Data, Nursing Documentation, Vital Signs Vital Signs: Last Vital Signs Temp 98.3 F 03/26/19 09:26 Pulse 66 03/26/19 09:26 Resp 18 03/26/19 09:26 BP 138/80 03/26/19 09:26 Pulse Ox 100 03/26/19 09:26 Primary Care Provider: Sole Palencia - Medical History PMH: Anxiety, Arthritis, Asthma, Back Problems, Bronchitis, COPD, Diabetes, HTN, Pneumonia - [facility] Procedures INSPECTION OF LOWER INTESTINAL TRACT, ENDO (01/07/16) INSPECTION OF UPPER INTESTINAL TRACT, ENDO (01/07/16) Family History: States: Diabetes - Social History Hx Tobacco Use: No Hx Alcohol Use: No Hx Substance Use: No - Immunization History Hx Tetanus Toxoid Vaccination: No Hx Influenza Vaccination: Yes Hx Pneumococcal Vaccination: No Review Of Systems Genitourinary: Negative for: Incontinence Musculoskeletal: Positive for: Back Pain Neurological: Negative for: Weakness, Numbness, Incoordination Physical Exam - Physical Exam Appears: Non-toxic, No Acute Distress Skin: Warm, Dry Head: Atraumatic, Normacephalic Eye(s): bilateral: Normal Inspection Oral Mucosa: Moist Neck: Normal ROM, Supple Back: No Vertebral Tenderness, No Decreased ROM, Other ((+) exquisite tenderness to the RT lumbar area.) Extremity: Normal ROM (full ROM of the lower extremities. ), No Deformity, No Swelling, Other (4/5 weakness to the RT upper and lower extremities (old finding).) Neurological/Psych: Normal Motor, Normal Sensation, Normal Reflexes ED Course And Treatment O2 Sat by Pulse Oximetry: 100 (RA) Pulse Ox Interpretation: Normal Medical Decision Making Medical Decision Making: Initial plan: -Lidoderm Motrin Tylenol Progress/Update: Pt stable for discharge home. Prescribed Tylenol. Given and instructed on use of walker from physical therapy. Advised to follow up with PMD or return if symptoms worsen. pt given lido derm patch, tylenol and motrin and walker with instruction from physical therapy. advised pmd f/u with outpatient pt recommended. Disposition Counseled Patient/Family Regarding: Diagnosis, Need For Followup, Rx Given - Disposition Referrals: Sole Palencia DO [[facility]] - Disposition: HOME/ ROUTINE Disposition Time: 11:30 Condition: GOOD Additional Instructions: Take patch off in 12 hours. Use warm compresses to painful area. Use walker for stability. Follow up with Dr Palencia next week, recommend further director of physical security apy. Prescriptions: Acetaminophen [Tylenol 325mg tab] 650 mg PO Q4 #50 tab Instructions: Lumbar Muscle Strain (DC) Forms: [facility] (Bel[place]ian), General Discharge Instructions - Clinical Impression Clinical Impression: Lumbar sprain - PA / CLEAN ROOM TECHNICIAN / Resident Statement / has reviewed & agrees with the documentation as recorded. - Scribe Statement The provider has reviewed the documentation as recorded by the Scribe (Stefani Vick) All medical record entries made by the Scribe were at my direction and personally dictated by me. I have reviewed the chart and agree that the record accurately reflects my personal performance of the history, physical exam, medical decision making, and the department course for this patient. I have also personally directed, reviewed, and agree with the discharge instructions and disposition.
[2019-03-26 11:37] VITALS: BP 166/82; PULSE 50; TEMP 97.4
[2019-03-26 11:41] VITALS: O2SAT 100
== END 2019-03-26 12:44 | disposition home or self-care (01) ==
LOC: C.ER 09:20
DX: S33.5XXA Sprain of ligaments of lumbar spine, initial encounter (principal); W19.XXXA Unspecified fall, initial encounter; E11.9 Type 2 diabetes mellitus without complications; I10 Essential (primary) hypertension; J44.9 Chronic obstructive pulmonary disease, unspecified; Z79.82 Long term (current) use of aspirin
CPT/HCPCS: 97116; 97162; 99284; G8978; G8979; G8980